=== PATIENT | male | born 1975 | race Two or more races ===

== ENCOUNTER → 2017-10-16 | Emergency (ER) | payer OTHER ==
[~2017-10-16] VITALS: Ht 177.8 cm; Wt 108.9 kg
[~2017-10-16] MED LIST: KETO10TA2 PO; ORPH100T PO
== END | disposition home or self-care (01) ==
LOC: ER 15:22
DX: R51 Headache (principal)

== ENCOUNTER → 2017-12-19 | Day surgery (SDC) | payer OTHER | END | disposition home or self-care (01) | LOC: ADM 12-17 15:30 → AMB-ENDOS 09:51 | DX: K57.30 Diverticulosis of large intestine without perforation or abscess without bleeding (principal); K64.8 Other hemorrhoids ==

== ENCOUNTER 2021-06-15 11:02 | Emergency (ER) | payer OTHER ==
[~2021-06-15] VITALS: Ht 177.8 cm; Wt 102.1 kg
[~2021-06-15 11:02] MED LIST changes: +SYNTHROID125 MCG
[2021-06-15] MEDS ORDERED: PEPCID AC20 MG PO (17:28)
[2021-06-15] MEDS ORDERED: KETO10TA2 PO (17:28)
== END 2021-06-15 17:34 ==
LOC: ER 11:02
DX: U07.1 COVID-19 (principal)

== ENCOUNTER 2021-08-02 19:31 | Emergency (ER) | payer OTHER ==
[~2021-08-02] VITALS: Ht 177.8 cm; Wt 102.1 kg
[~2021-08-02 19:31] MED LIST changes: +PEPCID AC20 MG PO
== END 2021-08-03 00:21 | disposition home or self-care (01) ==
LOC: ER 19:31
DX: R55 Syncope and collapse (principal)

== ENCOUNTER 2022-07-12 08:11 | Day surgery (SDC) | payer OTHER | END 2022-07-12 13:25 | disposition home or self-care (01) | LOC: AMB-ENDOS 08:11 | PROVIDERS: ATTEND Colon & Rectal Surgery | DX: R10.9 Unspecified abdominal pain (principal); K64.4 Residual hemorrhoidal skin tags; E03.9 Hypothyroidism, unspecified ==

== ENCOUNTER 2024-04-19 10:54 | Emergency (ER) | payer OTHER ==
[~2024-04-19] VITALS: Ht 177.8 cm; Wt 108.9 kg
[2024-04-19 12:42] LABS: HEMATOCRIT 42.2 % (39.0-48.0); HEMOGLOBIN 14.4 g/dL (13-16.00); MEAN CELL VOLUME 89.1 fL (80.0-100.00); MEAN CORPUSCULAR HEMOGLOBIN 30.4 pg (27.00-32.0); MEAN CORPUSCULAR HGB CONC 34.1 g/dl (32.0-36.0); PLATELET COUNT 202 K/uL (150-450); RED BLOOD COUNT 4.73 M/uL (4.00-6.00); RED CELL DISTRIBUTION WIDTH 13.9 % (11.5-14.5)
== END 2024-04-19 13:30 | disposition home or self-care (01) ==
LOC: ER 10:55
PROVIDERS: General Practice
DX: R21 Rash and other nonspecific skin eruption (principal)